=== PATIENT | male | born 1990 | race Caucasian/White ===

== ENCOUNTER 2022-04-08 17:16 | Emergency (ER) | payer SELFPAY ==
[2022-04-08 17:38] LABS: BASOPHILS # (AUTO) 0.1 10^3/uL (0.0-0.1); BASOPHILS % (AUTO) 0.7 %; EOSINOPHILS % (AUTO) 0.3 %; HCT - HEMATOCRIT 41.9 % (42.0-52.0); HGB - HEMOGLOBIN 14.5 g/dL (14.0-18.0); LYMPHOCYTES # (AUTO) 2.5 10^3/uL (1.5-3.5); LYMPHOCYTES % (AUTO) 27.9 %; MEAN CORPUSCULAR HGB CONC 34.6 g/dL (32.0-36.0); MEAN CORPUSCULAR VOLUME 89.7 fL (80.0-94.0); MEAN PLATELET VOLUME 8.2 fL (7.4-11.4); MONOCYTES # (AUTO) 0.5 10^3/uL (0.0-1.0); NEUTROPHILS # (AUTO) 5.8 10^3/uL (1.5-6.6); NEUTROPHILS % (AUTO) 64.8 %; PLT - PLATELET COUNT 405 10^3/uL (130-450); RED BLOOD COUNT 4.67 10^6/uL (4.70-6.10); RED CELL DISTRIBUTION WIDTH 11.8 % (12.0-15.0)
[2022-04-08 17:56] LABS: ACETAMINOPHEN < 10 ug/mL (10-30); ALBUMIN 4.4 g/dL (3.2-5.5); ALBUMIN/GLOBULIN RATIO 1.2 (1.0-2.2); ALKALINE PHOSPHATASE 71 IU/L (42-121); ALT ALANINE AMINOTRANSFERASE 15 IU/L (10-60); AST ASPARTATE AMINOTRANSFERASE 25 IU/L (10-42); BILIRUBIN,TOTAL 0.6 mg/dL (0.2-1.0); BUN - BLOOD UREA NITROGEN 11 mg/dL (6-20); CALCIUM 9.5 mg/dL (8.5-10.3); CARBON DIOXIDE - CO2 23 mmol/L (21-32); CHLORIDE 106 mmol/L (101-111); ETOH - ETHANOL < 5.0 mg/dL; GFR - MDRD 87 (>89); GLUCOSE 101 mg/dL (70-100); LIPASE 29 U/L (22-51); POTASSIUM 4.1 mmol/L (3.5-5.0); SALICYLATE < 6.0 mg/dL; SODIUM 139 mmol/L (135-145); TOTAL PROTEIN 8.1 g/dL (6.7-8.2)
[2022-04-08 18:01] LABS: MUDS CUTOFF CONCENTRATIONS CUTOFF CONC BELOW:
--- NOTE | 2022-04-08 18:03 | ED Physician Documentation ---
History of Present Illness - Stated complaint Stated Complaint: SI - Chief complaint Chief Complaint: MHE - Additonal information Additional information: 31-year-old male presents to the emergency department voluntarily requesting psychiatric stabilization. He reports that he was in a verbal conflict with his ex with whom he lives today. They are having disagreements about the custody of their child. He states that he has been anxious and depressed for quite some time. However he has no resources here and he thought of killing himself. He did attempt to run into traffic but could not complete the act. He then attempted to drown himself in the bathtub with a plastic bag but again could not finish the act. He is tearful. He endorses cannabis use. He has never been hospitalized before. He denies AH or VH. He is not taking any prescribed medications. Review of Systems Constitutional: reports: Reviewed and negative Ears: reports: Reviewed and negative Nose: reports: Reviewed and negative Cardiac: reports: Reviewed and negative Respiratory: reports: Reviewed and negative Skin: reports: Reviewed and negative Musculoskeletal: reports: Reviewed and negative Neurologic: reports: Reviewed and negative Psychiatric: reports: Depressed, Suicidal, Anxiety, Insomnia. denies: Homicidal, Hallucinations, Delusions Endocrine: reports: Reviewed and negative PD PAST MEDICAL HISTORY - Present Medications Home Medications: Ambulatory Orders Medication Instructions Recorded Confirmed No Known Home Medications 04/08/22 04/08/22 - Allergies Allergies/Adverse Reactions: Allergies Allergy/AdvReac Type Severity Reaction Status Date / Time No Known Drug Allergies Allergy Verified 04/08/22 17:36 PD ED PE NORMAL - General General: Alert and oriented X 3, No acute distress - HEENT HEENT: Atraumatic, Moist mucous membranes - Neck Neck: Supple, no meningeal sign, No adenopathy - Cardiac Cardiac: RRR, No murmur - Respiratory Respiratory: No respiratory distress, Clear bilaterally - Abdomen Abdomen: Normal bowel sounds, Soft, Non tender - Male Male : Deferred, Pt declined - Rectal Rectal: Deferred - Back Back: No CVA TTP - Derm Derm: Normal color, Warm and dry, No rash - Extremities Extremities: No deformity, No tenderness to palpate, Normal ROM s pain - Neuro Neuro: Alert and oriented X 3, shipping and receiving clerk 2-12 intact Eye Opening: Spontaneous Motor: Obeys Commands Verbal: Oriented GCS Score: 15 - Psych Psych: Other (Depressed affect. Poor eye contact. Endorses thoughts of wanting to . Attempted to drown himself and run into traffic earlier today. No AH or VH) Results - Vitals Vitals: Vital Signs - 24 hr 04/08/22 04/08/22 17:36 20:32 Temperature 37.5 C Heart Rate 79 Respiratory 18 16 Rate Blood Pressure 137/83 H O2 Saturation 96 Oxygen O2 Source Room air - Labs Labs: Laboratory Tests 04/08/22 04/08/22 04/08/22 17:34 17:34 17:34 WBC 9.0 RBC 4.67 L Hgb 14.5 Hct 41.9 L MCV 89.7 MCH 31.0 MCHC 34.6 RDW 11.8 L Plt Count 405 MPV 8.2 Neut # (Auto) 5.8 Lymph # (Auto) 2.5 [place] # (Auto) 0.5 Eos # (Auto) 0.0 Baso # (Auto) 0.1 Absolute Nucleated RBC 0.00 Nucleated RBC % 0.0 Sodium 139 Potassium 4.1 Chloride 106 Carbon Dioxide 23 Anion Gap 10.0 BUN 11 Creatinine 1.0 Estimated GFR (MDRD) 87 L Glucose 101 H Calcium 9.5 Total Bilirubin 0.6 AST 25 ALT 15 Alkaline Phosphatase 71 Total Protein 8.1 Albumin 4.4 Globulin 3.7 Albumin/Globulin Ratio 1.2 Lipase 29 TSH 1.21 Urine Color Urine Clarity Urine pH Ur Specific [place] Urine Protein Urine Glucose (UA) Urine Ketones Urine Occult Blood Urine Nitrite Urine Bilirubin Urine Urobilinogen Ur Leukocyte Esterase Ur Microscopic Review Urine Culture Comments Salicylates < 6.0 Urine Opiates Screen Ur Oxycodone Screen Urine Methadone Screen Ur Propoxyphene Screen Acetaminophen < 10 L Ur Barbiturates Screen Ur Tricyclics Screen Ur Phencyclidine Scrn Ur Amphetamine Screen U Methamphetamines Scrn U Benzodiazepines Scrn Urine Cocaine Screen U Cannabinoids Screen Ethyl Alcohol < 5.0 SARS-CoV-2 (PCR) 04/08/22 04/08/22 17:55 18:01 WBC RBC Hgb Hct MCV MCH MCHC RDW Plt Count MPV Neut # (Auto) Lymph # (Auto) [place] # (Auto) Eos # (Auto) Baso # (Auto) Absolute Nucleated RBC Nucleated RBC % Sodium Potassium Chloride Carbon Dioxide Anion Gap BUN Creatinine Estimated GFR (MDRD) Glucose Calcium Total Bilirubin AST ALT Alkaline Phosphatase Total Protein Albumin Globulin Albumin/Globulin Ratio Lipase TSH Urine Color YELLOW Urine Clarity CLEAR Urine pH 6.0 Ur Specific [place] 1.025 Urine Protein NEGATIVE Urine Glucose (UA) NEGATIVE Urine Ketones NEGATIVE Urine Occult Blood NEGATIVE Urine Nitrite NEGATIVE Urine Bilirubin NEGATIVE Urine Urobilinogen 0.2 (NORMAL) Ur Leukocyte Esterase NEGATIVE Ur Microscopic Review NOT INDICATED Urine Culture Comments NOT INDICATED Salicylates Urine Opiates Screen NEGATIVE Ur Oxycodone Screen NEGATIVE Urine Methadone Screen NEGATIVE Ur Propoxyphene Screen NEGATIVE Acetaminophen Ur Barbiturates Screen NEGATIVE Ur Tricyclics Screen NEGATIVE Ur Phencyclidine Scrn NEGATIVE Ur Amphetamine Screen NEGATIVE U Methamphetamines Scrn NEGATIVE U Benzodiazepines Scrn NEGATIVE Urine Cocaine Screen NEGATIVE U Cannabinoids Screen POSITIVE H Ethyl Alcohol SARS-CoV-2 (PCR) NOT DETECTED PD MEDICAL DECISION MAKING - ED course Complexity details: reviewed results, re-evaluated patient, considered ish leigh, d/w patient ED course: 31-year-old male presents voluntarily to the emergency department for evaluation of suicidal ideation. He was in a verbal encounter with his ex at home this morning. They were discussed in the custody of his child. He became very upset and enraged. He reports that he has attempted to run into traffic as well as attempted to drown himself with a bag while in the bathtub today. He was unable to complete either active though. He is tearful and is requesting voluntary psychiatric hospitalization. Screening labs were unremarkable. Telepsych consultation is pending. Likely voluntary placement for further stabilization. Patient will be signed out to my nighttime colleague Dr. Mcfarland to follow-up on telepsych recommendations. Soc ial work consult will be placed for the a.m. assuming no beds available overnight Departure - Departure Clinical Impression: Suicidal ideation Condition: Stable Record reviewed to determine appropriate education?: Yes
[2022-04-08 18:06] LABS: BILIRUBIN,URINE NEGATIVE (NEGATIVE); GLUCOSE, URINE (UA) NEGATIVE (NEGATIVE); KETONES,URINE (UA) NEGATIVE (NEGATIVE); LEUKOCYTE ESTERASE, URINE NEGATIVE (NEGATIVE); NITRITE,URINE NEGATIVE (NEGATIVE); OCCULT BLOOD,URINE NEGATIVE (NEGATIVE); PROTEIN,URINE NEGATIVE (NEGATIVE); UROBILINOGEN,URINE 0.2 (NORMAL) E.U./dL (NORMAL)
[2022-04-08 18:11] LABS: CLARITY,URINE CLEAR (CLEAR)
[2022-04-08 18:22] LABS: AMPHETAMINE SCREEN,URINE NEGATIVE (NEGATIVE); BARBITURATE SCREEN,UR NEGATIVE (NEGATIVE); BENZODIAZEPINES SCREEN, URINE NEGATIVE (NEGATIVE); COCAINE SCREEN URINE NEGATIVE (NEGATIVE); METHADONE SCREEN, URINE NEGATIVE (NEGATIVE); METHAMPHETAMINES SCREEN, URINE NEGATIVE (NEGATIVE); OPIATE SCREEN, URINE NEGATIVE (NEGATIVE); OXYCODONE SCREEN, URINE NEGATIVE (NEGATIVE); PROPOXYPHENE SCREEN, URINE NEGATIVE (NEGATIVE); THC CANNABINOID SCREEN, URINE POSITIVE (NEGATIVE); TRICYCLIC ANTIDEPRESSANT,URINE NEGATIVE (NEGATIVE)
[2022-04-08] MEDS ORDERED: MIRTAZAPINE 15 MG TABLET PO STA (23:42)
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
--- NOTE | 2022-04-09 04:46 | ED Physician Documentation ---
ED Addendum - Addendum Addendum: 04/09/22 03:06 At shift change care of Santana Mcmanus was turned over to me by Anne LOMELI. He is depressed with suicidal ideation and he has been seen by Grecia Llanes the psychiatrist via telepsych. She has recommended voluntary in-patient treatment and she has recommended a dose of Remeron 7.5 mg for sleep tonight. The patient is agreeable and is able to sleep in the noisy ED after medication. Social work consult is placed for AM for placement.
[2022-04-09 10:14] VITALS: BP 114/72
--- NOTE | 2022-04-09 11:25 | ED Physician Documentation ---
ED Addendum - Addendum Addendum: 04/09/22 11:[address] Mcfarland at shift change. Briefly 31-year-old gentleman presented last night for suicidal ideation. Now not suicidal. Telemetry psychiatric note recommended admission and seen by social work. He is not suicidal now and given the inconsistency the DCR, Shannon was consulted and she is not detaining him. Disposition: Discharged home condition: Stable Diagnosis: 1. Depression
== END 2022-04-09 11:37 | disposition home or self-care (01) ==
LOC: ED 17:16
DX: R45.851 Suicidal ideations (principal); F33.2 Major depressive disorder, recurrent severe without psychotic features; F43.12 Post-traumatic stress disorder, chronic; Z20.822 Contact with and (suspected) exposure to COVID-19
CPT/HCPCS: 36415; 80053; 80306; 80307; 80320; 80329; 81003; 83690; 84443; 85025; 87635; 90834; 99283; 99285; A9270; Q3014; 81001; 87086

== ENCOUNTER 2022-07-28 23:21 | Emergency (ER) | payer SELFPAY ==
[2022-07-29] MEDS ORDERED: KETOROLAC 30 MG/ML VIAL IM STA (00:06)
--- NOTE | 2022-07-29 02:59 | ED Physician Documentation ---
History of Present Illness - Stated complaint Stated Complaint: LOWER ABD PX - Chief complaint Chief Complaint: Abd Pain - History obtained from History obtained from: Patient - Additonal information Additional information: 31-year-old man with past medical history of right inguinal hernia presents with hernia site pain that has been ongoing "for a long time". Patient recently moved here and is still in process of getting a surgeon. Hernia is bothering him more after walking around for prolonged period of time and improves when he lays flat or slightly at tilt. Denies fever, urinary symptoms, testicular pain, other issue. Review of Systems Constitutional: denies: Fever : reports: Other (inguinal pain). denies: Dysuria Musculoskeletal: denies: Joint pain PD PAST MEDICAL HISTORY - Past Medical History Past Medical History: Yes GI: Hiatal hernia Psych: Depression - Past Surgical History Past Surgical History: No - Present Medications Home Medications: Ambulatory Orders Medication Instructions Recorded Confirmed Fluoxetine HCl [Prozac] 20 mg PO DAILY 07/28/22 07/28/22 - Allergies Allergies/Adverse Reactions: Allergies Allergy/AdvReac Type Severity Reaction Status Date / Time No Known Drug Allergies Allergy Verified 07/28/22 23:26 - Social History Does the pt smoke?: No Smoking Status: Never smoker Does the pt drink ETOH?: No Does the pt have substance abuse?: No - Immunizations Immunizations are current?: Yes PD ED PE NORMAL - Vitals Vital signs reviewed: Yes - General General: Alert and oriented X 3, No acute distress, Well developed/nourished - HEENT HEENT: Atraumatic, PERRL, EOMI - Male Male : Other (Right indirect hernia, easily reducible ) Results - Vitals Vitals: Vital Signs - 24 hr 07/28/22 07/28/22 07/29/22 23:23 23:26 01:26 Temperature 36.2 C L 36.5 C Heart Rate 77 77 75 Respiratory 18 18 17 Rate Blood Pressure 133/84 H 133/84 H 129/95 H O2 Saturation 100 100 100 07/29/22 03:00 Temperature 36.5 C Heart Rate 72 Respiratory 16 Rate Blood Pressure 125/80 O2 Saturation 99 Oxygen O2 Source Room air PD MEDICAL DECISION MAKING - ED course ED course: Patient had improvement of symptoms with Trendelenburg positioning and Toradol. Provided names of surgeon for repair. Return precautions given. Symptomatic care discussed. Departure - Departure Disposition: Home, Self Care Clinical Impression: Hernia Condition: Good Instructions: ED Hernia Inguinal Follow-Up: Darrell Zhang MD [Provider Admit Priv/Credential] - Comments: You are seen in the emergency department for inguinal hernia.Toradol was provided as a pain reliever. You can take Advil 600 mg every 6 hours as needed at home for pain. Please follow-up with a general surgeon to schedule hernia repair. Return to the emergency department if you Develop fever, are unable to get the hernia back in, if you noticed purple discoloration, or have any new or worsening symptoms or other concerns. Discharge Date/Time: 07/29/22 03:05
[2022-07-29 03:01] VITALS: BP 125/80
== END 2022-07-29 03:05 | disposition home or self-care (01) ==
LOC: ED 23:21
DX: K40.90 Unilateral inguinal hernia, without obstruction or gangrene, not specified as recurrent (principal)
CPT/HCPCS: 96372; 99282; 99283

== ENCOUNTER 2022-12-08 15:37 | Outpatient (CLI) | payer SELFPAY | END 2022-12-08 15:38 | disposition critical access hospital (66) | LOC: EMS 15:37 | DX: S01.81XA Laceration without foreign body of other part of head, initial encounter (principal); S01.511A Laceration without foreign body of lip, initial encounter; Y04.8XXA Assault by other bodily force, initial encounter; Y92.524 Gas station as the place of occurrence of the external cause | CPT/HCPCS: A0425; A0429 ==

== ENCOUNTER 2022-12-08 15:40 | Emergency (ER) | payer SELFPAY ==
[2022-12-08] MEDS ORDERED: TETANUS/DIPHTHERIA/PERTUSSIS 0.5 ML SYRINGE IM ONE (16:07)
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
--- NOTE | 2022-12-08 16:37 | CT Report ---
PROCEDURE: CERVICAL SPINE WO INDICATIONS: Trauma TECHNIQUE: Noncontrast 3 mm thick sections acquired from the skull base to the T4 level. Sagittal and coronal r eformats were then constructed. For radiation dose reduction, the following was used: automated exp osure control, adjustment of mA and/or kV according to patient size. COMPARISON: None. FINDINGS: Image quality: Excellent. Bones: No fractures or dislocations. Visualized superior ribs are intact. Soft tissues: Prevertebral soft tissues are normal in thickness. No paravertebral hematomas. No ap ical pneumothoraces. IMPRESSION: No acute finding. Reviewed by: Sean Vizcarra MD on 12/08/2022 4:36 PM PST Approved by: Sean Vizcarra MD on 12/08/2022 4:36 PM PST Station ID: [id number]
[2022-12-08 17:30] VITALS: BP 139/71
== END 2022-12-08 17:30 | disposition home or self-care (01) ==
LOC: EDUNIT# → ED 15:40
DX: S09.90XA Unspecified injury of head, initial encounter (principal); S00.01XA Abrasion of scalp, initial encounter; Y04.2XXA Assault by strike against or bumped into by another person, initial encounter
CPT/HCPCS: 90471; 99283; 99284

== ENCOUNTER 2023-01-04 12:29 | Emergency (ER) | payer SELFPAY ==
[2023-01-04 12:44] VITALS: BP 105/68
[2023-01-04] MEDS ORDERED: HYDROcod/ACETAM 5/325 MG TABLET PO STA (13:13)
--- NOTE | 2023-01-04 13:16 | ED Physician Documentation ---
PD HPI UPPER EXT INJURY - Stated complaint Stated Complaint: LT WRIST INJ - Chief complaint Chief Complaint: Trauma Ext - History obtained from History obtained from: Patient - Additonal information Additional information: The patient comes to the emergency department chief complaint of left hand pain after his hand got smashed in a car door yesterday. He states he has had swelling on the ulnar aspect of his hand and pain proximal hand. He denies any other injuries. He has been able to move his fingers and does have sensation in the associated fingers. No prior injury to this hand. PD PAST MEDICAL HISTORY - Past Medical History GI: Hiatal hernia Psych: Depression - Past Surgical History Past Surgical History: No - Present Medications Home Medications: Ambulatory Orders Medication Instructions Recorded Confirmed Fluoxetine HCl [Prozac] 20 mg PO DAILY 07/28/22 12/08/22 HYDROcod/ACETAM 5/325 [Dora 5/325] 1 - 2 tablet PO Q6H PRN #14 tablet 01/04/23 - Allergies Allergies/Adverse Reactions: Allergies Allergy/AdvReac Type Severity Reaction Status Date / Time No Known Drug Allergies Allergy Verified 01/04/23 12:52 - Social History Does the pt smoke?: No Smoking Status: Never smoker Does the pt drink ETOH?: No Does the pt have substance abuse?: No - Immunizations Immunizations are current?: Yes PD ED PE NORMAL - Vitals Vital signs reviewed: Yes - General General: Alert and oriented X 3, No acute distress, Well developed/nourished - HEENT HEENT: Atraumatic, PERRL, EOMI, Moist mucous membranes - Neck Neck: Supple, no meningeal sign - Cardiac Cardiac: Strong equal pulses - Respiratory Respiratory: No respiratory distress - Derm Derm: Warm and dry, Other (. Moderate edema.) - Extremities Extremities: No deformity, Other (Edema and tenderness focused on the ulnar aspect of the patient's left hand on both the dorsal and the palmar aspects. No obvious deformity, though edema may obscure some mild deformity. Some range of motion but limited of both the fourth and fifth left digits. ) - Neuro Neuro: Alert and oriented X 3 - Psych Psych: Normal mood, Normal affect PD ED PE EXPANDED - Free text exam Free text exam: Left hand exam continued: Flexor and extensor tendon function intact at MCP and IP joints of both the fourth and fifth digits. Results - Vitals Vitals: Vital Signs - 24 hr 01/04/23 12:42 Temperature 37.0 C Heart Rate 71 Respiratory 16 Rate Blood Pressure 105/68 O2 Saturation 97 Oxygen O2 Source Room air - Rads (name of study) Left hand x-ray series Relevant Findings:: Final report received, See rad report (Nondisplaced, mildly angulated fractures at bases of left fourth and fifth metacarpals.) Procedures - Splint (location) - Minor Left hand Splint applied by: Tech Type of splint: Fiberglass, Ulnar gutter Other: Patient tolerated well, No complications, Neurovascular intact PD Medical Decision Making - ED course Complexity details: reviewed results, re-evaluated patient, considered differential, d/w patient ED course: The patient's x-ray series showed nondisplaced and mildly angulated fractures at the bases of both the fourth and fifth metacarpals. A large ulnar gutter splint was placed in the ED and patient was advised that he would need follow-up with orthopedics for further evaluation. Patient is neurovascularly intact and states he will call the clinic tomorrow. We have discussed the usual indications for return Departure - Departure Disposition: 01 Home, Self Care Clinical Impression: Fracture, metacarpal Qualifiers: Encounter type: initial encounter Metacarpal bone: unspecified metacarpal Fracture type: closed Metacarpal location: base Fracture morphology: unspecified fracture morphology Fracture alignment: nondisplaced Qualified Code(s): S62.349A - Nondisplaced fracture of base of unspecified metacarpal bone, initial encounter for closed fracture Condition: Stable Instructions: ED Fx Hand Closed Follow-Up: Tramaine Ferreira MD [Provider Admit Priv/Credential] - Prescriptions: HYDROcod/ACETAM 5/325 [Dora 5/325] 1 - 2 tablet PO Q6H PRN #14 tablet PRN Reason: Pain Comments: Your x-ray shows fractures at the bases of 2 of your hand bones, the ones associated with your ring and pinky fingers. While these are not majorly displaced, they are at a slight angle, and it is important that you follow-up with orthopedics to determine whether surgery is recommended or not. In the meantime, you should keep the splint in place and do not remove it. You may take the pain medication prescribed, along with ibuprofen, to help with the pain. You may also prop your hand up and apply ice packs as needed. A prescription for your pain medications has been electronically transmitted to the pharmacy of your choice, [facility] in [place].
--- NOTE | 2023-01-04 14:14 | XRAY Report ---
PROCEDURE: Hand 3 View LT INDICATIONS: Trauma TECHNIQUE: 3 views of the hand(s) acquired. COMPARISON: None FINDINGS: Bones: Fractures of the base of the fourth and fifth metacarpals are seen with mild angulation.. No suspicious bony lesions. Soft tissues: No suspicious soft tissue calcifications. IMPRESSION: Fractures of the base of the fourth and fifth metacarpals. Reviewed by: Uziel Carmen on 01/04/2023 1:12 PM ADOLFO Approved by: Uziel Carmen on 01/04/2023 1:12 PM ADOLFO Station ID: [id number]
== END 2023-01-04 13:45 | disposition home or self-care (01) ==
LOC: ED 12:29
DX: S62.34 Nondisplaced fracture of base of other metacarpal bone (principal); W23.0XXA Caught, crushed, jammed, or pinched between moving objects, initial encounter
CPT/HCPCS: 29125; 73130; 99283; A9270

== ENCOUNTER 2023-02-05 08:00 | Outpatient (CLI) | payer SELFPAY ==
--- NOTE | 2023-02-06 12:28 | XRAY Report ---
PROCEDURE: Hand 3 View LT INDICATIONS: LEFT HAND FRACTURES TECHNIQUE: 3 views of the hand(s) acquired. COMPARISON: None. FINDINGS: Bones: There is nondisplaced fracture at the base of the fourth and fifth metacarpals. Early callus formation consistent with healing. The alignment is stable. No suspicious bony lesions. Soft tissues: No suspicious soft tissue calcifications or masses. IMPRESSION: Healing fourth and fifth metacarpal base fractures. Reviewed by: Judith Gutierres MD on 02/06/2023 12:26 PM PDT Approved by: Judith Gutierres MD on 02/06/2023 12:26 PM PDT Station ID: [id number]
== END 2023-02-05 23:59 | disposition home or self-care (01) ==
LOC: DI.WOS 08:00
PROVIDERS: ATTEND Physician Assistant Surgical
DX: S62.315D Displaced fracture of base of fourth metacarpal bone, left hand, subsequent encounter for fracture with routine healing (principal); S62.317D Displaced fracture of base of fifth metacarpal bone, left hand, subsequent encounter for fracture with routine healing